=== PATIENT | female | born 1965 | race Caucasian/White ===

== ENCOUNTER 2024-09-23 12:30 | Outpatient (RCR) | payer BC, SELFPAY | END 2025-01-21 23:59 | disposition home or self-care (01) | PROVIDERS: PCP Surgery; Visit Provider Surgery | DX: N39.41 Urge incontinence (principal); R27.8 Other lack of coordination; Z51.89 Encounter for other specified aftercare | CPT/HCPCS: 97110; 97140; 97162; 97530; 97535 ==